=== PATIENT | female | born 1990 | race Two or more races ===

== ENCOUNTER 2024-04-11 14:32 | Outpatient (CLI) | payer OTHER | END 2024-04-11 14:33 | disposition home or self-care (01) | LOC: PRENATAL 14:32 | PROVIDERS: ATTEND Obstetrics & Gynecology Maternal & Fetal Medicine | DX: O44.00 Complete placenta previa NOS or without hemorrhage, unspecified trimester (principal); Z3A.19 19 weeks gestation of pregnancy ==

== ENCOUNTER 2024-06-05 15:02 | Outpatient (CLI) | payer OTHER | END 2024-06-05 15:03 | disposition home or self-care (01) | LOC: PRENATAL 15:02 | PROVIDERS: ATTEND Obstetrics & Gynecology Maternal & Fetal Medicine | DX: O26.849 Uterine size-date discrepancy, unspecified trimester (principal); O44.00 Complete placenta previa NOS or without hemorrhage, unspecified trimester; Z3A.27 27 weeks gestation of pregnancy ==

== ENCOUNTER → 2024-07-24 08:14 | Outpatient (CLI) | payer OTHER | END | disposition home or self-care (01) | LOC: PRENATAL 08:14 | PROVIDERS: ATTEND Obstetrics & Gynecology Maternal & Fetal Medicine | DX: O26.849 Uterine size-date discrepancy, unspecified trimester (principal); O36.8199 Decreased fetal movements, unspecified trimester, other fetus; Z3A.34 34 weeks gestation of pregnancy ==